=== PATIENT | male | born 1955 | race Caucasian/White ===

== ENCOUNTER 2018-10-20 21:54 | Inpatient (IN) | payer OTHER ==
[~2018-10-20] VITALS: Ht 182.9 cm; Wt 77.7 kg
[2018-10-20] MEDS ORDERED: ASPIRIN325 PO (22:29)
[2018-10-20] MEDS ORDERED: LIPITOR 20 MG T20 M1 PO ×2 (22:31→22:38)
[2018-10-20] MEDS ORDERED: CARBIDOPA-LEVO1 EAC9 PO (22:35)
[2018-10-20] MEDS ORDERED: CARDIZEM CD120 MG PO (22:36)
[2018-10-20] MEDS ORDERED: CYMBALTA60 MG PO (22:47)
[2018-10-20] MEDS ORDERED: PROSCAR 5MG TABL5 M1 PO (22:47)
[2018-10-20] MEDS ORDERED: NEURONTIN600 MG PO (22:51)
[2018-10-20] MEDS ORDERED: MELATONIN5 M1 PO (22:51)
[2018-10-20] MEDS ORDERED: CENTRUM SILVER1 EAC2 PO (22:52)
[2018-10-20] MEDS ORDERED: PROTONIX40 M1 PO (22:53)
[2018-10-20] MEDS ORDERED: SEROQUEL 25 MG25 M1 PO (22:54)
[2018-10-20] MEDS ORDERED: REQUIP 0.25 M0.25 M1 PO (22:57)
[2018-10-20] MEDS ORDERED: FLOMAX0.4 MG PO (23:02)
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
[2018-10-21 08:48] VITALS: BP 144/76
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
[2018-10-21] MEDS ORDERED: NEURONTIN100 MG PO (18:06)
[2018-10-21] MEDS ORDERED: MICARDIS40 MG PO (18:08)
[2018-10-21 19:43] VITALS: BP 194/82
[2018-10-22 02:29] VITALS: BP 194/82
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
[2018-10-22 06:14] LABS: HEMATOCRIT 36.4 % (42.0-52.0); HEMOGLOBIN 12.7 gm/dL (14.0-18.0); MCH 29.2 pg (26.0-34.0); MCV 83.2 fL (80.0-100.0); RBC 4.37 mil/uL (4.50-6.00); WBC 8.2 thou/uL (4.0-11.0)
[2018-10-22 06:35] LABS: ALBUMIN 3.5 g/dL (3.4-5.0); CALCIUM 8.7 mg/dL (8.5-10.1); CREATININE 0.8 mg/dL (0.7-1.3); MAGNESIUM 2.2 mg/dL (1.8-2.4); POTASSIUM 3.7 mmol/L (3.5-5.1); TOTAL PROTEIN 6.2 g/dL (6.4-8.2)
[2018-10-22 09:19] VITALS: BP 129/79
--- NOTE | 2018-10-22 13:25 | NUR ---
ASSUMED CARE AT 0700 THIS MORNING. PT. UP WALKING, BUT UNSTEADY ON HIS FEET. HE HAS BEEN UP FOR MEALS, GROUPS AND MEDICATIONS. HE CONTINUES TO C/O AVH BUT DENIES SI/HI. HE HAS BEEN PLEASANT WITH STAFF BUT HAS REQUIRED MUCH REDIRECTION TO GO TO WHERE HE NEEDS TO BE.
[2018-10-22 19:07] LABS: SYPHILIS AB Negative (Negative)
[2018-10-22 19:57] VITALS: BP 173/76
--- NOTE | 2018-10-22 21:45 | NUR ---
ASSUMED CARE OF THE PT AT 191 PM. ALERT ET ORIENTED X 2. MAKES NEEDS KNOWN. WALKS WITH AN UNSTEADY GAIT, USING A WALKER WITH HIS HEAD BENT FORWARD. HE IS A FALL RISK. HEART RATE REGULAR. LUNGS CLEAR BILATERALLY, RESP., EVEN, AND UNLABORED. +BS HEARD IN ALL 4 QUADRANTS. +PP BILATERALLY. DENIES ANXIETY, DEPRESSION, A/V HALLUNICATIONS, DENIES SI/HI. REMAINS ON 12 MINUTE CHECKS FOR HIS SAFETY. TOOK HIS HS MEDICATIONS WITHOUT ANY DIFFICULTY.
--- NOTE | 2018-10-23 02:53 | NUR ---
THE PT HAS BEEN UP TO THE BATHROOM WITH THE ASSISTANCE OF ONE STAFF MEMBER, HE WALK AND THEN LEANS BACK WHILE WALKING, LIKE HE IS GOING TO FALL. THIS CORRESPONDENCE SPECIALIST ASSISTED THE PT AND HELPED HIM TO GET BACK TO HIS BED AFTER USING THE BATHROOM.
[2018-10-23 09:51] VITALS: BP 122/82
--- NOTE | 2018-10-23 13:32 | NUR ---
ASSUMED PATIENT CARE AT 0730. PATIENT UP FOR BREAKFAST, ATE 100% OF BREAKFAST. PATIENT COMPLIANT WITH ALL MEDICATIONS. HOWEVER, DULOXETINE WAS NOT GIVEN AT 0900, DUE R/T 20 MG CAPSULES ON. PHARMACY CONTACTED, NEW CAPSULES, 30 MG EACH. 90 MG OF DULOXETINE ADMINISTERED ORDERED.
[2018-10-23 17:07] LABS: ANA INTERPRETATION Negative (())
--- NOTE | 2018-10-23 19:50 | NUR ---
PATIENT ADMINISTERED MILK OF MAGNESIA FOR CONSTIPATION; SEE EMAR FOR EXACT TIMES.
--- NOTE | 2018-10-23 21:48 | NUR ---
ASSUMED CARE OF THE PT AT 191 PM. ALERT ET ORIENTED X 2, SELF AND PLACE. MAKES NEEDS KNOWN. WALKS WITH A SLIGHTLY UNSTEADY GAIT. WALKS WITH A WALKER, SBA X 1. DENIES ANXIETY, DEPRESSION, SI/HI, AND A/V HALLUNICATIONS. HEART RATE REGULAR, LUNGS CLEAR BILATERALLY, RESP., EVEN, AND UNLABORED. +BS HEARD IN ALL 4 QUADRANTS. +PP BILATERALLY, IS MISSING TOES OFF OF BOTH FEET. REMAINS ON 12 MINUTE CHECKS FOR HIS SAFETY.
[2018-10-24 08:35] VITALS: BP 116/75
--- NOTE | 2018-10-24 11:24 | NUR ---
PATIENT IS UP AND OUT ON THE UNIT, AMBULATES WITH ASSIST OF ROLLER WALKER, GAIT IS UNSTEADY. PATIENT IS IMPULSIVE, ENCOURAGED TO NOTIFY STAFF FOR BATHROOM USE, OR IF HE FEELS HE WANTS TO AMBULATE. PATIENT TOOK ALL HIS MORNING MEDICATION WHOLE WITHOUT DIFFICULTY, EXCEPT FOR MIRALAX. PATIENT IS EATING MEALS AND DRINKING FLUID WELL, PATIENT DENIES SUICIDAL AND HOMOCIDAL IDEATION. HE RATED DEPRESSION 8/10, ANXIETY 2/10. PATIENT DOES NOT INITIATE CONVERSATION, BUT RESPONDS APPROPRIATELY TO ASSESSMENT QUESTIONS. NO SIGN OF ACUTE DISTRESS NOTED, WILL MONITOR FOR SAFETY.
--- NOTE | 2018-10-24 16:49 | NUR ---
[facility] called and spoke with Daisha (sister) [phone], she ws advised that pt will need extra cares at d/c and that [facility] is too expensive for him. This pt has Me[facility]ca[facility] and she will assist with placement. She is available for a family meeting Saturday or Saturday.
[2018-10-24 19:43] VITALS: BP 134/79
--- NOTE | 2018-10-25 01:23 | NUR ---
Care assumed of patient at 1900: Patient up in dining room. Patient sitting in the corner and not having much interaction with staff or peers. Patient soft spoken. Patient voiced irritation with other peers. Patient reports that he wants to get the hell outta here. Patient denies pain or discomfort. Alert and oriented x4. Denies SI/HI/AH/VH. Patient took medications whole without difficulty. Patient then assisted to bed. As staff was helping resident to bed, he asked how long the poison would take. Patient was questioned. He believes that staff are trying to poison him. Patient would not ellaborate his fear any further for staff. New order obtained for resident to start Remeron 22.5mg qHS. Patient offered medication. Patient refused. Patient fixated on the idea that staff was attempting to poison him. Patient layed restless in bed. Nurse attempted to speak with patient on his difficulty sleeping. Patient was able to speak more clearly with logical thoughts around 2400. Patient asked if he could have something to help him sleep. Sonam Saleem NP, notified. Order obtained for Trazodone 25mg po 1x dose now. Approval also received to administer Remeron 22.5mg po that he had previously refused. Patient took medications whole without difficulty. Patient appears to be resting quietly at this time.
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
[2018-10-25 10:37] VITALS: BP 102/65
[2018-10-25 10:44] VITALS: BP 102/65
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
[2018-10-25 19:54] VITALS: BP 152/99
--- NOTE | 2018-10-25 23:56 | NUR ---
Care assumed of patient at 1900: Patient sitting in day room at start of shift. Patient very restless this shift. Patient was wandering about the unit hallways and day room during the evening. Patient would stand like he was trying to hide from something. Patient stated "that kezia has a rifle and he is going to kill us all". Patient fixated on this thought and needed reassurance several times. Anytime nurse approached patient he would become agitated saying that nurse was interupting his movie shoot and stepping on to the set. Attempted to re-orientate resident on current time and location. Patient stated that he would not feed into nurses bullshit. Patient took medications whole without difficulty. No fear of him being poisoned this shift. Patient declined to eat a snack. Patient being startled easily. Poor balance and unsteady gait using FWW. Staff assisted patient to bed and he has been restless with difficulty sleeping this evening.
[2018-10-26 10:30] VITALS: BP 111/75
--- NOTE | 2018-10-26 11:36 | NUR ---
Assumed pt care this am, ambulates with a walker, Posture is slumped down, head is constantly towards the floor. Would answer questions in short simple sentences. No hallucinations or pain noted at this time. Pt did ask for water and asked if there was medicine in the water. Took all of his medication but did want an explanation and a rundown off al medications that were being given.
[2018-10-26 19:30] VITALS: BP 122/84
--- NOTE | 2018-10-26 23:28 | NUR ---
Care assumed of patient at 1900: Patient sitting in day room at start of shift. Patient isolative from other staff and peers. Difficulty making eye contact. Speaking in a quiet, whisper tone. Patient pleasant and cooperative with staff. Patient holding head down and was able to make eye contact when asked. Patient had an occasional smile but otherwise appeared flat. Patient alert and oriented x4. Denies SI/HI/AH/VH. No paranoia or delusions observed/reported. Patient incontinent of bladder this shift. Patient has difficulty following safety directions from staff and will attempt to ambulate independently. Patient has unsteady gait and poor balance. Patient took medications whole without difficulty. Patient smiled a couple times when speaking with staff member. Patient resting quietly in bed at this time.
[2018-10-27 07:00] VITALS: BP 101/72
[2018-10-27 12:08] VITALS: BP 107/72
--- NOTE | 2018-10-27 12:22 | NUR ---
ASSUMED CARE AT 0700 TODAY. THE PT. IS UP DRESSED AND IN THE DINING ROOM. SHE HAS BEEN COOPERATIVE WITH STAFF. HE CONINUES TO NOT WAIT FOR STAFF WHEN HE AMBULATES AND IS UNSTEADY ON HIS FEET. OT HERE TO EVALUATE HIM. SHE DISCUSSED HIM WITH THE DR. HE HAS BEEN ON THE UNIT FOR MEALS, MEDS, SOME GROUPS. CONTINUES TO ISOLATE HIMSELF FROM OTHERS. DENIES SI/HI. NO AVH NOTED THIS SHIFT UP TO THIS WRITING. HE WAS NOTED TO SLAP HIMSELF (NOT HARD) THIS MORNING.
[2018-10-27 19:54] VITALS: BP 132/88
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
[2018-10-28 08:09] VITALS: BP 113/70
--- NOTE | 2018-10-28 10:58 | NUR ---
Date of Admission: 10/20/18 Date of Activity Therapy Assessment: 10/23/18 Activity Goal: Increase self esteem and social engagement Initial Goal: 1 Group activity/day Weekly progress towards goal: On track Group participation level: Minimal Behaviors observed: Patients participation has been minimal though group attendance has increased to typically 1 group per day. Patient does not typically make delusional statements during groups, though during travel to groups he has been noted to make statements regarding other patients with guns, shooting him, or poisoning him. Plan: No change towards goal. Continue to increase engagement.
--- NOTE | 2018-10-28 14:13 | NUR ---
PATIENT WAS UP IN THE DAY ROOM WHEN CARE ASSUMED, HE AMBULATES WITH ASSIST OF ROLLER WALKER, GAIT UNSTEADY, PATIENT REQUIRES STAND-BY ASSIST WITH ADL ESPECIALLY BATHROOM HYGIENE. PATIENT TOOK ALL MEDICATION WHOLE WITHOUT DIFFICULTY. PATIENT IS EATING MEALS AND DRINKING FLUID WELL. PATIENT DENIES SUICIDAL AND HOMOCIDAL IDEATION. HE STATES HE IS REALLY DEPRESSED, RATED DEPRESSION 10/10, DENIES ANXIETY. NO AUDITORY/VISUAL HALLUCINATION NOTED. PATIENT'S GOAL TODAY IS "TO GET OUT OF HERE". HE DENIES HAVING PHYSICAL PAIN. PATIENT'S SISTER VISITED AND WANTS NURSES TO ASK PATIENT IF HE WANTS TO USE PUZZLE BOOK INTERMITTENTLY. AFFECT IS FLAT MOOD IS DEPRESSED, NO SIGN OF ACUTE DISTRESS NOTED AT THIS TIME, WILL MONITOR FOR SAFETY.
[2018-10-28 21:04] VITALS: BP 128/84
--- NOTE | 2018-10-29 04:08 | NUR ---
Assumed pt care at 1900.Pt A/OX4,with a flat affect and reported feeling depressed 7/10 denied feeling anxious. No c/o pain. Up with RW with minimal assist especially with toileting d/t unsteady gait. Sleeping on and off through the night.Continent of B&B.Resting quietly at this time,will continue to monitor pt.
[2018-10-29 08:00] VITALS: BP 115/73
--- NOTE | 2018-10-29 16:15 | NUR ---
PATIENT WAS IN BED WHEN CARE ASSUMED, THIS RN ASSISTED PATIENT IS GETTING DRESSED FOR BREAKFAST, PATIENT CONSTANTLY REQUIRES ASSIST OF STAFF TO GET OUT BED, AND AMBULATION DUE TO UNSTEADY GAIT, PATIENT LEANS FORWARD, AND STAGERS WHILE AMBULATING. HE TOOK ALL HIS MEDICATION WHOLE WITHOUT DIFFICULTY. PATIENT IS EATING MEALS AND DRINKING FLUID WELL. PATIENT DENIES SUICIDAL/HOMOCIDAL IDEATION. HE IS EATING MEALS AND DRINKING FLUID WELL. HE RATED BOTH DEPRESSION/ANXIETY 7/10, AFFECT IS FLAT, MOOD DEPRESSED. PATIENT DENIES HAVING PHYSICAL PAIN, HE PARTICIPATES IN GROUP THERAPY, NO SIGN OF ACUTE DISTRESS NOTED, WILL MONITOR FOR SAFETY.
[2018-10-29 19:30] VITALS: BP 121/82
--- NOTE | 2018-10-29 20:35 | NUR ---
ASSUMED CARE OF THE PT AT 191 PM. ALERT ET ORIENTED X 3. MAKES NEEDS KNOWN. WALKS WITH A FAIRLY STEADY GAIT. USES A WALKER. HEART RATE REGULAR, LUNGS CLEAR BILATERALLY, RESP., EVEN, AND UNLABORED. +BS HEARD IN ALL 4 QUADRANTS. DENIES ANXIETY AND DEPRESSION, SI/HI, A/V HALLUNICATIONS. +PP BILATERALLY. REMAINS ON 12 MINUTE CHECKS FOR HIS SAFETY.
--- NOTE | 2018-10-30 05:53 | NUR ---
THE PT SLEPT 7 HOURS LAST NIGHT.
[2018-10-30 07:51] VITALS: BP 108/71
--- NOTE | 2018-10-30 11:15 | NUR ---
ASSUMED PATIENT CARE AT 0700 A.M. PATIENT UP IN D.R. AT THAT TIME. ATE 100% BREAKFAST. PARTIAL PARTICIPATION, GROUPS--R.T. AND A.M. GOALS. BLUNT AFFECT, QUIET MOOD. CALM BEHAVIOR. STATED DURING MORNING GOALS THAT HE IS NOT ANXIOUS OR DEPRESSED. STATED "I HAVE NEVER BEEN EITHER ONE OF THOSE IN MY WHOLE LIFE.
--- NOTE | 2018-10-30 11:18 | NUR ---
Nutrition: pt admitted to [facility] with hallucinations, delusions and seen due to LOS. Chart reviewed. Pt eats 100% of meals on regular diet. Hx MANUEL, HTN, PNA, multiple toe amputations. No weight to evaluate, alerted nsg. Pt reports UBW 180# and stable. Low nutrition risk.
--- NOTE | 2018-10-30 18:08 | NUR ---
NEW ORDER PER DR. NEGRETE FOR QUENTIAPINE 150 MG ER, FIRST DOSE, ONE TIME ORDER ADMINISTERED AT 1755 P.M. MEDICATION SCHEDULED ON DAILY BASIS BEGINNING 10/31/18.
[2018-10-30 19:27] VITALS: BP 120/77
--- NOTE | 2018-10-30 19:59 | NUR ---
ASSUMED CARE @ 1900. AMBULATING WITH WALKER AND X1 ASSIST. COOPERATED WITH ASSESSMENT, DENIES HI AND SI. REPORTS MOOD IS FPC BETWEEN SAD AND HAPPY. DENIES NEEDS, WILL CONTINUE TO MONITOR Q 12 MINUTES FOR PATIENT SAFETY.
[2018-10-30 20:23] VITALS: BP 120/77
--- NOTE | 2018-10-30 20:36 | NUR ---
PT WAS AMBULATING IN DAY ROOM WITH WALKER, HE WAS SHUFFLING BACKWARDS, NURSE ON COUCH TALKING WITH ANOTHER PEER. NURSE ABLE TO BRACE FALL DOWN TO FLOOR. NO INJURY NOTED, NO C/O PAIN, NO HEAD INJURY. STRINGING MACHINE OPERATOR AND FAMILY CONTACTED. NOTIFIED.
--- NOTE | 2018-10-30 21:17 | NUR ---
HOSPITALIST Roderick ALEJANDRA [employer] PROFESSIONAL CONTACTED AND NOTIFIED OF NON INJURY FALL. DRAWSTRING KNOTTER ALSO CONTACTED REGARDING NON INJURY FALL.
[2018-10-30 21:36] VITALS: BP 133/85
[2018-10-30 22:33] VITALS: BP 133/85
[2018-10-30 22:43] VITALS: BP 133/85
--- NOTE | 2018-10-31 03:43 | NUR ---
DR. NEGRETE NOTIFIED OF NON ONJURY FALL, VS AND FALL ASSESMENT CONDUCTED. VS @ 20:15 118/78 107 18 97% ON RA 95.8F DE LE[place]N WNL FOR SELF, DENIES PAIN. @ 21:20 VS 133/85 90 18 96% ON RA, DE LEÓN WNL FOR SELF, DENIES PAIN. PT RETIRED TO BED AND HAS BEEN SLEEPING, BUT AROUSABLE. BED ALARM ON, WILL CONTINUE TO MONITOR.
--- NOTE | 2018-10-31 05:56 | NUR ---
0600 MEDS GIVEN WHOLE WITH WATER. INCONTINENT CARE PROVIDED. SLEPT 5 HOURS OVERNIGHT.
[2018-10-31 08:41] VITALS: BP 97/56
--- NOTE | 2018-10-31 09:00 | NUR ---
PATIENT FAMILY CALLED THIS MORNING ABOUT FALL TAKEN YESTERDAY. QUESTIONED PATIENT AND STATED NO DISCOMFORT CURRENTLY. QUIET IN DINING AREA. DOES NOT LOOK AT STAFF WHEN ADDRESSED - HEAD LOWERED AND VERY DETACHED. WILL ANSWER IF ENCOURAGED - DENIES ANY S/I OR H/I - HESITANT TO ANSWER WHEN ASKED ABOUT DEPRESSION OR ANXIETY. APPETITE GOOD. MEDICATION COMPLIANT. EXPLAINED NEW MEDICATION STARTED SEROQUEL 150 XR. STATED HAD GOOD SLEEP WHEN ASKED. ATTENDED MORNING GROUP BUT DID NOT PARTICIPATE. SAT WITH HEAD LOWERED AND SLEEPING. UNSTEADY WHEN AMBULATING. ADVISED WILL ASSIST WHEN AMBULATING WITH WALKER -
[2018-10-31 09:45] VITALS: BP 97/56
--- NOTE | 2018-10-31 16:07 | NUR ---
KAIT left a voicemail for pt sister Daisha concerning pt care and wellbeing. SW provided contact number. KAIT mention that Sophie will be the SW this weekend.
[2018-10-31 19:29] VITALS: BP 147/85
--- NOTE | 2018-10-31 20:02 | NUR ---
ASSUMED CARE @ 1900, SITTING IN THE DAY ROOM, HEAD DOWN. DENIES SI, HI. SAYS MOOD VARIES FROM HAPPY TO DEPRESSED. DENIES HALLUCINATIONS TODAY. WILL CONTINUE TO MONITOR.
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
--- NOTE | 2018-11-01 03:28 | NUR ---
ONE TIME DOSE OF SEROQUEL 25 GIVEN FOR PARANOIA. PT LAID DOWN IN BED AFTER TAKING SEROQUEL AND SLEPT WELL THROUGH OUT THE NIGHT. WILL CONTINUE TO MONITOR Q 12 MINUTES FOR PATIENT SAFETY.
--- NOTE | 2018-11-01 07:29 | NUR ---
SLEPT FOR A TOTAL OF 6 HOURS OVERNIGHT. TOOK 0600 MEDS WHOLE WITH WATER.
[2018-11-01 08:10] VITALS: BP 119/76
--- NOTE | 2018-11-01 12:08 | NUR ---
KAIT called and spoke with Daisha ( sister) [phone] and she requested that the referral be sent to [facility] - this is her first choice, [facility] and [facility]. She reported that she has not looked at any yet, and wanted to stay in [facility] or [place]. KAIT sent these referrals. [facility]- [phone] Bhavna Leaves of [facility] [phone] Jorge Alberto [facility] [phone]. She also reported that she was coming up on Saturday to visit with this pt
--- NOTE | 2018-11-01 13:54 | NUR ---
Date of Admission: 10/20/18 Date of Activity Therapy Assessment:10/23/2018 Activity Goal:One group per day Initial Goal: Pt will participate in one recreational therapy group a day to increase self esteem and social engagement. Weekly progress towards goal: On track Group participation level:Minimal Behaviors observed:Pt has head down during groups, often. Pt appears disoriented, at times, and struggles with engagement due to his disorientation to tasks. Pt will sit passively- without disruption. Plan: No change towards goal
--- NOTE | 2018-11-01 14:07 | NUR ---
PATIENT IS UP AND OUT ON THE UNIT, AMBULATES WITH ASSIST OF ROLLER WALKER, GAIT IS UNSTEADY. PATIENT REQUIRES CONSTANT ASISTANCE WHILE AMBULATING AND DURING TOILET HYGEINE. PATIENT TOOK ALL HIS MEDICATION WHOLE WITHOUT DIFFICULTY. HE IS EATING MEALS AND DRINKING FLUID WELL. PATIENT DENIES SUICIDAL AND HOMOCIDAL IDEATION. AFFECT IS FLAT, WITHDRAWN, MOOD IS DEPRESSED, POOR EYE CONTACT. PATIENT'S GOAL TODAY IS TO "LEAVE THIS PLACE". NO AGGRESSION OF AGITATION NOTED AT THIS TIME. WILL CONTINUE TO ENCOURAGE REQUEST FOR ASSIST WHEN ATTEMPTING TO GET OUT OF CHAIR OR WHEN NEEDING TO USE THE BATHROOM, AND MONITOR FOR SAFETY.
[2018-11-01 19:38] VITALS: BP 136/89
[2018-11-02 01:09] VITALS: BP 136/89
--- NOTE | 2018-11-02 05:01 | NUR ---
PT OUT WITH PEERS EARLY IN THE SHIFT. CONFUSED BUT REDIRECTABLE. TOOK MEDS W/O PROBLEM AFTER SNACKS. ESCORTED TO ROOM AND SLEPT WELL THROUGHT THE NIGHT.
--- NOTE | 2018-11-02 09:06 | NUR ---
ASSUMED PATIENT CARE AT 0700. PATIENT ASSISTED UP FOR BREAKFAST, STAND-BY ASSIST. ATE 100% OF BREAKFAST. ATTENDING A.M. GROUP AT THIS TIME.
[2018-11-02 09:15] VITALS: BP 111/77
[2018-11-02 13:45] VITALS: BP 111/77
[2018-11-02 20:20] VITALS: BP 114/76
--- NOTE | 2018-11-03 00:37 | NUR ---
ASSUMED CARE @ 1900. SITTING IN THE DAY ROOM AT A TABLE IN A CHAIR. HOLDING HEAD TO CHEST. EYES CLOSED, RESPIRATIONS EVEN AND UNLABORED. WHEN SPOKEN TO, LIFTS HIS CHIN SLIGHTLY AND SPEAKS SOFTLY AN ANSWER. FLAT AFFECT, WITHDRAAWN MOOD IS DEPRESSED, POORLY MAINTAINS EYE CONTACT. NEEDS X1 ASSIST WHEN AMBULATING, HIGH FALL RISK, HOWEVER GETS UP AND WALKS WITHOUT ASKING FOR ASSISTANCE. HRRR, LUNGS CLEAR, ABD NORMOACTIVE X 4 Q, REPORTS BM THIS MORNING 11/02/18. ATE SNACK, TOOK HS MEDS WHOLE WITH WATER. WILL CONTINUE TO MONITOR Q 12 MINUTES FOR PT SAFETY.
[2018-11-03 02:54] VITALS: BP 114/76
--- NOTE | 2018-11-03 06:23 | NUR ---
SLEPT 6.6 HOURS OVERNIGHT, UP ONCE IN THE NIGHT TO TOILET.
[2018-11-03 08:19] VITALS: BP 110/75
[2018-11-03 12:21] VITALS: BP 110/75
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
[2018-11-03 20:00] VITALS: BP 123/83
--- NOTE | 2018-11-03 20:14 | NUR ---
ASSUMED CARE @ 1900. SITTING IN THE DAY ROOM WITH HEAD BENT FORWARD CHIN TO CHEST. WHEN SPOKEN TO HE RESPONDS IN A SOFT VOICE THAT IS HARD TO HEAR AND UNDERSTAND. WHEN ASKED TO SPEAK UP, HE RESPONDS THAT I ALREADY KNOW AND HE DOESNT NEED TO TELL ME. WILL CONTINUE TO MONITOR Q 12 FOR PATIENT SAFETY.
--- NOTE | 2018-11-03 22:37 | NUR ---
HS MEDS TAKEN WHOLE WITH WATER, AMBULATED TO BEDROOM X1 ASSISTANCE, TOILETED AND CHANGED INTO [facility]. IN BED AT THIS WRITING. WILL CONTINUE TO MONITOR Q 12 MINUTES FOR PATIENT SAFETY.
--- NOTE | 2018-11-04 01:00 | NUR ---
UP TO USE THE TOILET @ 0000, RETURNED TO BED. ASLEEP 12 MINUTES LATER.
[2018-11-04 02:53] VITALS: BP 123/83
[2018-11-04 02:55] VITALS: BP 123/83
[2018-11-04 05:36] VITALS: BP 123/83
--- NOTE | 2018-11-04 05:59 | NUR ---
SLEPT A TOTAL OF 6.8 HOURS.
[2018-11-04 08:40] VITALS: BP 132/94
--- NOTE | 2018-11-04 12:29 | NUR ---
HAS BEEN VISIBLE IN DAYROOM SITTING WITH PEERS-CHIN TO CHEST POSTURE MAKING CONVERSATION DIFFICULT AND EYE CONTACT POOR. SPEECH SLOW,SLIGHTLY SLURRED DIFFICULT TO UNDERSTAND. DENIES FEELING DEPRESSED OR ANXIOUS WHEN QUESTIONED, DENIES PAIN/DISCOMFORT. NO DELUSIONAL THOUGHTS REPORTED THIS SHIFT-DOES TEND TO BE WITHDRAWN,SITS AWAY FROM PEERS-MINIMALLY VERBAL.AMBULATES WITH SBA X1 AND ROLLER WALKER.
[2018-11-04 19:52] VITALS: BP 131/84
--- NOTE | 2018-11-04 20:55 | NUR ---
Pt in dayroom upon arrival to shift. Pt continues to get up to ambulate without waiting for assistance. Pt compliant with medications and hs snack. Pt has head to chest so eye contact difficult, affect remains flat, voice monotone. Gait steady this ashlee during ambulation with walker. Pt requested to goto bed and bed alarm placed.
[2018-11-05 05:32] LABS: ABSOLUTE NEUTROPHILS 5.4 thou/uL (1.4-8.2); BASOPHILS 0.5 % (0.0-2.0); HEMATOCRIT 37.2 % (42.0-52.0); LYMPHOCYTES 23.6 % (24.0-44.0); MCH 29.4 pg (26.0-34.0); MCHC 34.9 g/dL (28.0-37.0); MCV 84.1 fL (80.0-100.0); MONOCYTES 8.7 % (1.0-8.0); PLATELET COUNT 176 thou/uL (150-400); POLYS 65.2 % (36.0-66.0); RBC 4.43 mil/uL (4.50-6.00); RDW 13.8 % (10.5-14.5); WBC 8.2 thou/uL (4.0-11.0)
[2018-11-05 05:42] LABS: CALCIUM 8.8 mg/dL (8.5-10.1); CREATININE 0.9 mg/dL (0.7-1.3); POTASSIUM 3.9 mmol/L (3.5-5.1)
--- NOTE | 2018-11-05 06:06 | NUR ---
Pt snoring and not arousable to take am sinemet.
[2018-11-05 08:00] VITALS: BP 106/63
[2018-11-05 09:07] VITALS: BP 106/63
--- NOTE | 2018-11-05 10:15 | NUR ---
ASSUMED PT CARE REPORT RECEIVED. PT IS OAX3 , FORGETFUL. VSS. NO COMPLAINT. PT AMBULATES WELL WITH HIS WALKER, NO ASSISTANCE NEEDED. PT IS CONTINENT. ATE FULL BREAKFAST. WILL CONTINUE TO MONITOR
--- NOTE | 2018-11-05 10:32 | NUR ---
Nutrition followup: pt continues to eat 100% of meals. On B12, folate supplementation. Requested weight in team meeting. Previously reported UBW of 180#. Continue low nutrition risk.
[2018-11-05 19:06] VITALS: BP 128/87
--- NOTE | 2018-11-06 00:11 | NUR ---
ASSUMED CARE @ 1900, IN BED EYES CLOSED, RESPIRATIONS EVEN AND UNLABORED. AWAKENED TO VOICE, ORIENTED X3. DENIED HI, SI AND HALLUCINATIONS TODAY. REPORTS MOOD IS HAPPY. REPORTS OCCASIONAL WORRY, BUT WOULD NOT SAY WHAT WORRIES HIM. HRRR R CHEST BRAIN STIMULATOR IMPLANT, LUNGS CTA, ABD NORMOACTIVE, REPORTS MED BM TODAY. TOOK HS MEDS WHOLE WITH WATER. WILL CONTINUE TO MONITOR Q 12 MINUTES FOR PATIENT SAFETY AND Q 2 HOURS FOR FALL SAFETY.
--- NOTE | 2018-11-06 06:02 | NUR ---
SLEPT OVERNIGHT TOTAL OF 8.4 HOURS
[2018-11-06 08:00] VITALS: BP 102/58
--- NOTE | 2018-11-06 09:27 | NUR ---
KAIT sent a referral to [facility] in [place], [place]. KAIT will follow-up with [facility] to see if pt can be evaluated for admission.
[2018-11-06 10:41] VITALS: BP 102/58
[2018-11-06 12:02] VITALS: BP 102/58
--- NOTE | 2018-11-06 12:39 | NUR ---
PATIENT AMBULATING AROUND UNIT BUT NEEDS REDIRECTION - VERY UNSTEADY FALLS BACKWARDS - POOR EYE CONTACT SINCE HE ALWAYS HAS HEAD FACED DOWN TOWARD FLOOR. CAN RAISE NECK FOR SHORT PERIODS OF TIME AND RESPONSIVE TO QUESTIONS BUT IN VERY LOW TONE VOICE. WHEN NOT EATING VERY SLUGGISH - FALLS TO SLEEP EASILY IN CHAIR. DID SO SHORTLY AFTER BREAKFAST AND WHILE SITTING IN DINING AREA JUST PRIOR TO LUNCH. PATIENT TAKES MEDICATIONS WITHOUT QUESTIONS. DENIES ANY S/I AND STATED DEPRESSION IMPROVED. STILL DISATISFIED WITH AMOUNT OF MEDICATIONS HE HAS TO TAKE HERE. HAD BOWEL MOVEMENT - GOOD APPETITE. AFFECT REMAINS FLAT AND MOOD QUIET AND ISOLATIVE.
[2018-11-06 19:24] VITALS: BP 150/99
--- NOTE | 2018-11-06 21:35 | NUR ---
Pt asleep in chair in dayroom upon arrival to shift. Pt provided hs meds and snack. Pt assisted to bathroom and pt was able to state he can not walk backwards or he will fall. Pt compliant with adl care. Bed alarm on.
[2018-11-07 08:22] VITALS: BP 134/91
--- NOTE | 2018-11-07 13:33 | NUR ---
DID TAKE SHOWER THIS AM WITH ASSIST DROHerman OT. SAID HE "ENJO YED" IT AND WAS NOTED TO HAVE BRIEF EPISODE OF SMILING, ATTENDING SCHEDULED GROUPS WITH MINIMAL VERBAL RESPONSES OFFERED. DENIES FEELING DEPRESSED,DENIES SI/SH MUCH NOTED SOCIAL
[2018-11-07 19:20] VITALS: BP 136/90
[2018-11-07 23:05] VITALS: BP 134/91
[2018-11-08 09:39] VITALS: BP 134/91
--- NOTE | 2018-11-08 10:34 | NUR ---
ASSUMED CARE AT 0700 THIS MORNING. PT. GOTTEN UP FOR BREAKFAST. AMBULATES WITH WALKER. STEADY ON HIS FEET IF HE DOES NOT TRY TO CHANGE DIRECTIONS OR WALK BACKWARDS. HE IS VERBALIZING KNOWING HE IS GETTING DISCHARGED. HE ASKS THAT HIS DISCHARGE ORDERS BE RECINDED AND HE BE ALLOWED TO REMAIN HERE. "I LIKE IT HERE". HE CONTINUES TO WALK AND SIT WITH HIS HEAD DOWN, LOOKING AT THE FLOOR. HE CAN RAISE HIS HEAD FOR SHORT PERIODS OF TIME, BUT UNABLE TO SUSTAIN THAT. ATE ON THE UNIT. COOPERATIVE WITH TAKING MEDICATIONS. ATTENDED MORONING MEETINGS (2). HE KEPT TELLING THIS NURSE, "I THINK I'VE CHANGED A LOT HERE". DENIES SI/HI. HAVE NOT NOTICED ANY AVH OF THIS WRITING.
[2018-11-08 19:30] VITALS: BP 131/86
--- NOTE | 2018-11-08 22:58 | NUR ---
Care assumed of patient at 1900: Patient sitting in dining room, watching TV with peers. Assisting peer put a puzzle together. Patient calm, pleasant and cooperative. Smiling at times. Disoriented to current time this shift. Took medication with no concerns. Patient is fearful that he will have to go to "[place]". Not sure as to which facility he is referring too. Patient hopeful about discharge. Education completed on daily life at a SNF or [facility] facility. Patient hopeful at this time.
[2018-11-09 07:30] VITALS: BP 97/63
[2018-11-09 11:08] VITALS: BP 97/63
--- NOTE | 2018-11-09 22:51 | NUR ---
Care assumed of patient at 1900: Patient lying in bed at start of shift. Patient assisted to day room for snack and PM activity. Patient ate 100% snack and worked on puzzles with peers. Patient pleasant and cooperative. Disoriented on current time. Patient reports that he is looking forward to being discharged. Patient hopeful. Patient took medications whole without difficulty. Patient smiled while speaking with staff, joking at times. Denies SI/HI/AH/VH. Patient went to bed rather early for this patient. Reports that he is feeling tired this evening. Patient resting quietly at this time.
[2018-11-10 08:31] VITALS: BP 95/64
[2018-11-10 12:12] VITALS: BP 95/64
--- NOTE | 2018-11-10 12:23 | NUR ---
ASSUMED CARE AT 0700 THIS MORNING. PT. IN BED BUT GOTTEN UP FOR BREAKFAST. PT. CONTINUES TO AMBULATE WITH WALKER WITH CHIN ON HIS CHEST. HE WAS COOPERATIVE WITH MEDICATIONS, MEALS ON THE UNIT, AND GROUPS. HE HAS BEEN ON THE UNIT ALL MORING. DENIES SI/HI. IS NOT TALKING ABOUT AVH AT THIS WRITING.
--- NOTE | 2018-11-10 13:59 | NUR ---
Date of Admission: 10/20/18 Date of Activity Therapy Assessment: 10/23/18 Activity Goal: Increase self-esteem and social engagement Initial Goal: 1 Group activity/day Weekly progress towards goal: Achieving current goals Group participation level: Moderate Behaviors observed: Patient is attending 1-2 groups per day. Moderate level of participation. Patient continues to hold head to chin and is difficult to understand at times. No noted talk of hallucinations. Plan: Increase goal to - two recreational therapy groups per day.
--- NOTE | 2018-11-10 15:51 | NUR ---
KAIT sent a referral to [facility] at [facility]. KAIT will follow-up with [facility] to evaluate the pt. KAIT will follow-up with pt and family to assist with admission into [facility].
[2018-11-10 19:41] VITALS: BP 129/88
--- NOTE | 2018-11-10 22:15 | NUR ---
ASSUMED CARE OF THE PT AT 1900 PM. ALERT ET ORIENTED X 3. MAKES NEEDS KNOWN. WALKS WITH A WALKER AND HAS A SLOW STEADY GAIT, HE IS SBA X 1. HEART RATE REGULAR. LUNGS CLEAR BILATERALLY, RESP., EVEN, AND UNLABORED. +BS HEARD IN ALL 4 QUADRANTS. ABD SOFT ET NONTENDOR. +PP BILATERALLY. HE LEANS FORWARD A LITTLE BIT WHEN HE WALKS. DENIES ANXIETY, DEPRESSION, SI/HI, A/V HALLUNICATIONS. REMAINS ON 12 MINUTE CHECKS FOR THE PT'S SAFETY.
--- NOTE | 2018-11-11 06:26 | NUR ---
THE PT SLEPT 7 HOURS LAST NIGHT.
--- NOTE | 2018-11-11 08:58 | NUR ---
0715: Report rec from noc shift, care assumed. 0900: Ambulatory assisted with walker and stand by assist of staff, gait steady, impulsive at times with movement, no delusions or hallucinations noted, cooperative with staff, takes meds whole, feeds self a.m., consumed 100%. Attending 0900 group, minimal participation. Denies pain or discomfort at this time, B/P=102/68, HR=80.
[2018-11-11 09:10] VITALS: BP 102/68
[2018-11-11 09:23] VITALS: BP 102/68
--- NOTE | 2018-11-11 11:18 | NUR ---
Nutrition: Pt continues to eat well, 75-100% of meals on regular diet. No weight other than pt reported. Continue to request weight from nsg. Obtained food preferences and reiterated option to order meals with assist from staff as desired. Low nutrition risk.
--- NOTE | 2018-11-11 11:26 | NUR ---
Pt was accepted to [facility]. Pt will d/c on November 12, 2018 at 11:00am .
--- NOTE | 2018-11-11 16:30 | NUR ---
KAIT spoke with Hansa concerning pt been accepted into [facility]. Hansa mention that she would like the DON to come in assessed pt on November 12, 2018 prior to him been accepted.
[2018-11-11 19:19] VITALS: BP 119/84
--- NOTE | 2018-11-11 23:03 | NUR ---
Care assumed of patient at 1900: Patient calm, pleasant and cooperative. Patient presents with flat affect at times. Patient conversing well with nurse, joking, occasionally smiling. Patient alert and oriented x3, disoriented on current time. Patient easily re-orientated. Patient ambulates about the unit and his room with FWW with min assist x1. Patient ate 100% snack. Denies SI/HI/AH/VH. No s/s of delusions or paranoia present. Took medications whole without difficulty. Patient worried that he will not like his new placement but is excited about upcoming discharge and hopeful. Patient went to bed without any difficulty and is resting quietly at this time.
--- NOTE | 2018-11-12 07:41 | NUR ---
0700: Report rec from noc shift, care assumed. 0730: Ambulatory to DR with assist of walker and staff x1 for PRN assistance, oriented to name and place, denies pain at this time, cooperative and pleasant with staff.
[2018-11-12 07:47] VITALS: BP 104/65
[2018-11-12 09:52] VITALS: BP 104/65
[2018-11-12 20:11] VITALS: BP 145/99
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
--- NOTE | 2018-11-13 07:50 | NUR ---
PT DENIES ANY PAIN TODAY. PT DENIES ANY HALLUCINATIONS AT THIS TIME. PT LUNGS CLEAR. PT UP WITH WALKER X1 STAND-BY ASSIST. PT SITTING IN W/C THIS AM DURING BREAKFAST.
[2018-11-13 08:00] VITALS: BP 139/96
[2018-11-13] MEDS ORDERED: LIPITOR 20 MG T20 M1 PO (09:37)
[2018-11-13] MEDS ORDERED: FLOMAX0.4 MG PO (09:37)
[2018-11-13] MEDS ORDERED: CARDIZEM CD120 MG PO (09:38)
[2018-11-13] MEDS ORDERED: ASPIRIN325 PO (09:38)
[2018-11-13] MEDS ORDERED: CYMBALTA30 MG PO (09:39)
[2018-11-13] MEDS ORDERED: QUETIAPINE FUM150 MG PO (09:39)
[2018-11-13] MEDS ORDERED: NEURONTIN600 MG PO (09:39)
[2018-11-13] MEDS ORDERED: SENNA-TIME S T1 EACH PO (09:41)
[2018-11-13] MEDS ORDERED: FINASTERIDE5 MG PO (09:42)
--- NOTE | 2018-11-13 11:00 | NUR ---
PT LEFT VIA W/C VAN TO [facility]. PHARMACY CAME AND GAVE MEDS TO PT. PERSONAL BELONGINGS GIVEN TO PT ALSO.
--- NOTE | 2018-11-13 11:28 | NUR ---
GAVE REPORT TO CHERRY AT [facility].
--- NOTE | 2018-11-16 12:02 | D ---
[facility] [place] [address] DISCHARGE SUMMARY Name: MATTHEW RICH Harinder Room #: 518A-A [facility] [place] ..#: [id number] Admission: 10/20/18 ������������������ Attend Phys: William Navarro DO Discharge: 11/13/18 ������������������ Date of : 59 Report #: [id number] THIS REPORT FOR: //name// CC: William Navarro FAM physician/PCP DATE OF SERVICE: 11/13/2018 INPATIENT PSYCHIATRIC DISCHARGE SUMMARY ATTENDING PHYSICIAN: William Navarro DO. [employer] PAINTING SUPERVISOR AT THE TIME OF DISCHARGE: Lang Tejeda M.D. 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 DISCHARGE DIET: Regular with Chocolate chip cookies at bedtime. DISCHARGE DISPOSITION: He is discharged to the [facility]. The patient is at high risk of falls due to retropulsion with his Parkinson disease. He needs assistance with gait and uses a walker at all times. Currently, I do not think he needs a locked memory care unit. However, he is at a significant risk of progression towards dementia. DISCHARGE MEDICATIONS: Are as follows: Tamsulosin 0.4 mg p.o. b.i.d. for BPH; atorvastatin 20 mg p.o. daily for hyperlipidemia; diltiazem hydrochloride 120 mg p.o. daily for hypertension, hold if systolic BP less than 100; aspirin 325 mg p.o. at bedtime for cardioprotection; gabapentin 600 mg p.o. at bedtime for neuropathy, sleep; duloxetine 90 mg p.o. daily for depression, this was increased during admission; quetiapine fumarate extended release 300 mg p.o. at bedtime for psychosis; Senna S 1 tab p.o. b.i.d. for bowel motility, hold if diarrhea and finasteride 5 mg p.o. at bedtime for BPH. The patient's general, medical and psychiatric followup will be at the [facility]. LABORATORY DATA: Laboratories done this admission, hematology most recent, 11/05/2018, showed H and H 13.0 and 37.2, white count 8.2 and platelet count 176,000. Chemistries were within normal limits, except chloride 108. Vitamin B12 level 538. Total protein slightly low at 6.2. Albumin 3.5. 24. ALT low at 24, AST 15 and the alkaline phosphatase was 70. The patient had an CHRIS done, which was negative. I guess that was ordered by Dr. Welch and syphilis was negative. [address] [address] DISCHARGE SUMMARY Name: MATTHEW RICH Room #: 518A-A [facility]..#: [id number] Admission: 10/20/18 ������������������ Attend Phys: William Navarro, Discharge: 11/13/18 ������������������ Date of : 59 Report #: [id number] HOSPITAL COURSE: The patient was admitted to the Psychiatric Unit with severe depression and suicidal ideation. The patient was on Sinemet. There was a concern if his Parkinson disease was optimally managed, as he had also been on Requip. Dr. Welch briefly increased the Requip, but he had hallucinations. I did my best to avoid the use of an antipsychotic; however, about 10 days into the hospitalization, quetiapine was initiated. This was titrated to 300 mg at bedtime in extended release form. The patient improved with this. He was having significant visual hallucinations and delusions of presence in that people were in a war, that he could not possibly be in the fight, so that happened on the dow. In the end, there was some challenge with getting a placement. Sister was upset about this. However, I think the patient and she did well and that is certainly to their credit. PHYSICAL EXAMINATION: Abnormal gait, parkinsonian, using a walker. Also the patient is notably kyphotic with a near 90 degree neck bent all the time. MENTAL STATUS EXAMINATION: This is a well-developed, thin, disabled male, appearing at least stated age. Attention limited. Concentration limited. Speech is normal in rate, volume and tone. Thought process is linear and goal directed. Thought content focused on discharge and seeing the sister. No psychomotor agitation. Some psychomotor retardation. Denied auditory, visual or tactile hallucinations. Denied suicidal intent or plan endorsed. Suspect he had some helplessness and hopelessness. Denied homicidal intent or plan. Memory not formally tested today. Insight fair. Judgment fair. Fund of knowledge likely below average at this point. PROGNOSIS: Prognosis for this patient is guarded given his age, Parkinson disease and we agree this likely advanced despite a deep brain stimulation placement. MEDICAL COMORBIDITIES: Per Dr. Tejeda's last note include paroxysmal atrial fibrillation, stable; hypertension, stable; hyperlipidemia; benign prostatic hypertrophy; peripheral neuropathy and Parkinson disease. ��������������������������������������������� <ELECTRONICALLY SIGNED> ���������������������������������������� By: William Navarro DO ��������������������������������������������� 11/16/18 [id number] William Navarro DO /nt
== END 2018-11-13 11:00 | DRG 885 ==
LOC: SBH 21:54
PROVIDERS: Nurse Practitioner; Nurse Practitioner Family; Psychiatry & Neurology Neurology; ADMIT Psychiatry & Neurology Psychiatry
DX: F33.3 Major depressive disorder, recurrent, severe with psychotic symptoms (principal); R45.851 Suicidal ideations; G20 Parkinson's disease; I10 Essential (primary) hypertension; G31.84 Mild cognitive impairment of uncertain or unknown etiology; I48.0 Paroxysmal atrial fibrillation; E78.5 Hyperlipidemia, unspecified; N40.0 Benign prostatic hyperplasia without lower urinary tract symptoms; G62.9 Polyneuropathy, unspecified; Z79.82 Long term (current) use of aspirin; Z79.899 Other long term (current) drug therapy
CPT/HCPCS: 10880